=== PATIENT | female | born 1945 | race Caucasian/White ===

== ENCOUNTER 2021-12-20 16:38 | Observation (INO) ==
[2021-12-20 18:16] LABS: ABS Eosinophils 0.2 10^3/ul (0-0.6); ABS Monocytes 0.4 10^3/ul (0-0.8); ABS Neutrophils 5.1 10^3/ul (1.5-7.7); Eosinophil % 2.3 %; Hematocrit 34 % (35-47); Hemoglobin 11.7 g/dL (12.0-16.0); Lymphocyte % 14.5 %; Mean Corpuscular HGB Conc 34 g/dL (31-36); Mean Corpuscular Hemoglobin 30 pg (27-31); Mean Corpuscular Volume 89 fL (80-97); Mean Platelet Volume 6.8 fL (7.4-10.4); Platelet Count 247 10^3/uL (150-450); Red Blood Count 3.85 10^6 /uL (3.70-4.87); Red Cell Distribution Width 14 % (10-15); White Blood Count 6.6 10^3/uL (3.5-10.8)
[2021-12-20 19:27] LABS: Albumin 3.6 g/dL (3.2-5.2)
[2021-12-20 19:33] LABS: Albumin/Globulin Ratio 1.1 (1-3); C Reactive Protein 77.07 mg/L (<8.01); Globulin 3.3 g/dL (2-4); Total Protein 6.9 g/dL (6.4-8.9)
[2021-12-20 19:37] LABS: Calcium 9.1 mg/dL (8.6-10.3); Potassium 4.5 mmol/L (3.5-5.0); Total Bilirubin 0.3 mg/dL (0.2-1.0); eGFR CKD-EPI 94.1 (>60)
[2021-12-20] MEDS ORDERED: Iohexol 300 (CONTRAST) 10 ML SDV IV ONE (20:51)
[2021-12-20] MEDS ORDERED: Clindamycin 300 MG/D5W BAG 300 MG/50 ML BAG IV SCH (22:30)
[2021-12-20] MEDS: metroNIDAZOLE IV 500 MG/100ML 500 MG/100 ML BAG IVPB SCH (23:16)
[2021-12-20] MEDS ORDERED: Oral Rinse (Biotene)(NF) 237 ML or 473 ML ORAL RINSE BTL MT PRN (23:22)
[2021-12-20] MEDS: cefTRIAXone 1 gm/50 mL NS BAG 1 GM/50 ML BAG IVPB SCH (23:45)
[2021-12-21 01:43] LABS: Urine Appearance Cloudy; Urine Bilirubin Negative (Negative); Urine Blood 1+ (Negative); Urine Color Yellow; Urine Glucose Negative (Negative); Urine Ketones Negative (Negative); Urine Nitrite Positive (Negative); Urine Protein Negative (Negative); Urine Specific Gravity 1.014 (1.002-1.030); Urine Urobilinogen Negative (Negative)
[2021-12-21 01:47] LABS: Urine Bacteria 1+ (Absent); Urine Red Blood Cell Trace(0-2/hpf) (Absent); Urine White Blood Cell Trace(0-5/hpf) (Absent)
[2021-12-21] MEDS ORDERED: Polyethyl Glycol/Propylene Gly OPHTH.SOLN BOTH EYES PRN (05:05)
[2021-12-21] MEDS ORDERED: Senna TAB 8.6 mg TAB PO PRN (05:20)
[2021-12-21] MEDS: PTO: Pancrelipase 36,000 units (NF) PO SCH ×3 (05:25→17:19)
[2021-12-21 06:06] LABS: ABS Eosinophils 0.2 10^3/ul (0-0.6); ABS Lymphocytes 1.2 10^3/ul (1.0-4.8); ABS Monocytes 0.4 10^3/ul (0-0.8); ABS Neutrophils 4.7 10^3/ul (1.5-7.7); Eosinophil % 3.2 %; Hematocrit 33 % (35-47); Hemoglobin 11.4 g/dL (12.0-16.0); Lymphocyte % 18.5 %; Mean Corpuscular HGB Conc 34 g/dL (31-36); Mean Corpuscular Hemoglobin 31 pg (27-31); Mean Corpuscular Volume 89 fL (80-97); Mean Platelet Volume 6.5 fL (7.4-10.4); Platelet Count 252 10^3/uL (150-450); Red Blood Count 3.74 10^6 /uL (3.70-4.87); Red Cell Distribution Width 14 % (10-15); White Blood Count 6.6 10^3/uL (3.5-10.8)
[2021-12-21 06:20] LABS: INR 1.39 (0.86-1.15)
[2021-12-21 06:45] LABS: Calcium 9.1 mg/dL (8.6-10.3); Potassium 3.7 mmol/L (3.5-5.0)
[2021-12-21] MEDS: metroNIDAZOLE IV 500 MG/100ML 500 MG/100 ML BAG IVPB SCH ×2 (06:46→17:20)
[2021-12-21] MEDS: DULoxetine DR 60 mg CAP PO SCH (09:41)
[2021-12-21] MEDS: FERROUS SULFATE PO SCH (09:44)
[2021-12-21] MEDS: Potassium Chlor 20 meq TAB.ER PO SCH ×3 (09:44→20:44)
[2021-12-21] MEDS: Timolol 0.25% OPHTH.SOLN BTL BOTH EYES SCH ×2 (09:45→20:43)
[2021-12-21] MEDS: Polyethylene Glycol 3350 17 GM PACKET PO SCH (09:48)
[2021-12-21] MEDS: Chlorhexidine MOUTHWASH 0.12% 15 ML UDC SWISH SPIT SCH ×2 (19:35→23:56)
[2021-12-21] MEDS: cefTRIAXone 1 gm/50 mL NS BAG 1 GM/50 ML BAG IVPB SCH (20:39)
[2021-12-22] MEDS: metroNIDAZOLE IV 500 MG/100ML 500 MG/100 ML BAG IVPB SCH ×3 (00:32→15:42)
[2021-12-22] MEDS: Chlorhexidine MOUTHWASH 0.12% 15 ML UDC SWISH SPIT SCH ×3 (03:33→15:42)
[2021-12-22 05:45] LABS: ABS Eosinophils 0.3 10^3/ul (0-0.6); ABS Lymphocytes 1.3 10^3/ul (1.0-4.8); ABS Monocytes 0.5 10^3/ul (0-0.8); ABS Neutrophils 3.6 10^3/ul (1.5-7.7); Eosinophil % 5.8 %; Hematocrit 32 % (35-47); Hemoglobin 10.7 g/dL (12.0-16.0); Lymphocyte % 22.6 %; Mean Corpuscular HGB Conc 34 g/dL (31-36); Mean Corpuscular Hemoglobin 30 pg (27-31); Mean Corpuscular Volume 89 fL (80-97); Mean Platelet Volume 6.3 fL (7.4-10.4); Platelet Count 239 10^3/uL (150-450); Red Blood Count 3.58 10^6 /uL (3.70-4.87); Red Cell Distribution Width 14 % (10-15); White Blood Count 5.7 10^3/uL (3.5-10.8)
[2021-12-22] MEDS ORDERED: Vancomycin Random Level NOTE FOLLOW UP ONE (06:00)
[2021-12-22 06:25] LABS: Calcium 8.7 mg/dL (8.6-10.3); Potassium 4.1 mmol/L (3.5-5.0); eGFR CKD-EPI 92.7 (>60)
[2021-12-22] MEDS: Polyethylene Glycol 3350 17 GM PACKET PO SCH (07:53)
[2021-12-22] MEDS: DULoxetine DR 60 mg CAP PO SCH (07:54)
[2021-12-22] MEDS: Potassium Chlor 20 meq TAB.ER PO SCH ×2 (07:59→08:00)
[2021-12-22] MEDS: PTO: Pancrelipase 36,000 units (NF) PO SCH ×2 (08:02→15:42)
[2021-12-22] MEDS: FERROUS SULFATE PO SCH (08:03)
[2021-12-22] MEDS: Timolol 0.25% OPHTH.SOLN BTL BOTH EYES SCH (08:04)
[2021-12-22 15:36] VITALS: BP 108/64
== END 2021-12-22 18:43 | disposition home or self-care (01) ==
LOC: EDHOLD 16:38 → ED 16:38 → SUATTDRO 22:58 → SSU 12-21 04:44
PROVIDERS: ADMIT Student in an Organized Health Care Education/Training Program; ATTEND Internal Medicine

== ENCOUNTER 2022-05-16 20:45 | Inpatient (IN) ==
[2022-05-16] MEDS ORDERED: Lactated Ringers 1000 ml BAG 1,000 ML IV ONE (21:22)
[2022-05-16] MEDS ORDERED: Cefepime 1 GM in Dextrose 1 GM/50 ML BAG IV ONE (21:22)
[2022-05-16 21:46] LABS: Hematocrit 25 % (35-47); Hemoglobin 7.9 g/dL (12.0-16.0); Mean Corpuscular HGB Conc 32 g/dL (31-36); Mean Corpuscular Hemoglobin 24 pg (27-31); Mean Corpuscular Volume 73 fL (80-97); Platelet Count 155 10^3/uL (150-450); Red Blood Count 3.34 10^6 /uL (3.70-4.87); Red Cell Distribution Width 18 % (10-15); White Blood Count 10.7 10^3/uL (3.5-10.8)
[2022-05-16 22:03] LABS: ABS Lymphocytes 0.8 10^3/ul (1.0-4.8); ABS Monocytes 0.4 10^3/ul (0-0.8); ABS Neutrophils 9.4 10^3/ul (1.5-7.7); Eosinophil % 0.3 %; Lymphocyte % 7.7 %
[2022-05-16 22:04] LABS: Anisocytosis 1+; Microcytosis 2+
[2022-05-16 22:09] LABS: Albumin/Globulin Ratio 1.2 (1-3); C Reactive Protein 84.78 mg/L (<8.01); Calcium 7.8 mg/dL (8.6-10.3); Globulin 2.5 g/dL (2-4); Polychromasia 1+; Potassium 3.5 mmol/L (3.5-5.0); Total Bilirubin 0.5 mg/dL (0.2-1.0); Total Protein 5.5 g/dL (6.4-8.9); eGFR CKD-EPI 97.9 (>60)
[2022-05-16 22:21] LABS: Urine Appearance Turbid; Urine Color Yellow; Urine Ketones Negative (Negative); Urine Protein 2+ (100 mg/dL) (Negative); Urine Specific Gravity <=1.005 (1.005-1.030); Urine Urobilinogen 1.0 (Negative) (Negative); Urine pH 5.5 (5.0-9.0)
[2022-05-16 22:22] LABS: Urine Bilirubin Negative (Negative); Urine Glucose Trace (100mg/dL) (Negative); Urine Nitrite Positive (Negative)
[2022-05-16 22:42] LABS: Urine Bacteria 1+ (Absent); Urine Red Blood Cell 3+(>10/hpf) (Absent); Urine White Blood Cell 3+(>20/hpf) (Absent); Urine Yeast Present (Absent)
[2022-05-17] MEDS ORDERED: ZINC OXIDE TOPICAL PRN (00:58)
[2022-05-17] MEDS ORDERED: MENTHOL TOPICAL PRN (00:58)
[2022-05-17] MEDS ORDERED: Polyethylene Glycol 3350 17 GM PACKET PO PRN (00:58)
[2022-05-17] MEDS ORDERED: Furosemide 20 mg/2 ml IV VIAL IV SLOW PU ONE (01:06)
[2022-05-17 01:30] LABS: Magnesium 1.2 mg/dL (1.9-2.7)
[2022-05-17] MEDS ORDERED: Magnesium Sulf 4 GM/100 ML IV 4,000 MG/100 ML BAG IVPB ONE (05:51)
[2022-05-17 06:33] LABS: ABS Eosinophils 0.1 10^3/ul (0-0.6); ABS Lymphocytes 0.5 10^3/ul (1.0-4.8); ABS Monocytes 0.3 10^3/ul (0-0.8); ABS Neutrophils 9.3 10^3/ul (1.5-7.7); Eosinophil % 1.2 %; Hematocrit 22 % (35-47); Hemoglobin 7.1 g/dL (12.0-16.0); Lymphocyte % 4.7 %; Mean Corpuscular HGB Conc 32 g/dL (31-36); Mean Corpuscular Hemoglobin 24 pg (27-31); Mean Corpuscular Volume 74 fL (80-97); Mean Platelet Volume 7.3 fL (7.4-10.4); Nucleated Red Blood Cells % 0.1; Platelet Count 141 10^3/uL (150-450); Red Blood Count 2.95 10^6 /uL (3.70-4.87); Red Cell Distribution Width 18 % (10-15); White Blood Count 10.3 10^3/uL (3.5-10.8)
[2022-05-17] MEDS ORDERED: Dextran 70/Hypromellose Tears Eye Drops 15 ml BTL (for Artificials Tears) BOTH EYES PRN (07:22)
[2022-05-17 07:27] LABS: Blood Urea Nitrogen 4 mg/dL (6-24); CO2 Carbon Dioxide 27 mmol/L (22-32); Calcium 7.9 mg/dL (8.6-10.3); Chloride 93 mmol/L (101-111); Glucose 86 mg/dL (70-100); Magnesium 1.1 mg/dL (1.9-2.7); Sodium 128 mmol/L (135-145); eGFR CKD-EPI 99.3 (>60)
[2022-05-17 07:32] LABS: Anion Gap 8 mmol/L (2-11)
[2022-05-17] MEDS ORDERED: Cefepime ADVAN 1 GM in NS 0.9% 50 ML 50 ML IVPB SCH (09:00)
[2022-05-17] MEDS: DULoxetine DR 60 mg CAP PO SCH (09:05)
[2022-05-17] MEDS: Multivitamins/Minerals TAB PO SCH ×2 (09:05→09:12)
[2022-05-17] MEDS: PANCRELIPASE 36000 UNIT PO SCH (09:13)
[2022-05-17] MEDS: Cefepime 1 GM in Dextrose 1 GM/50 ML BAG IV SCH ×2 (10:57→21:00)
[2022-05-17] MEDS: Ondansetron 4 mg VIAL 2 MG/ML 2 ml VIAL IV PRN (11:11)
[2022-05-17 12:26] LABS: Ferritin 70.4 ng/mL (11-307)
[2022-05-17 12:34] LABS: Calcium 8.4 mg/dL (8.6-10.3); Potassium 3.4 mmol/L (3.5-5.0); eGFR CKD-EPI 97.4 (>60)
[2022-05-17] MEDS ORDERED: Potassium Chlor 20 meq TAB.ER PO ONE (12:38)
[2022-05-17] MEDS ORDERED: Potassium Chloride LIQUID 20 MEQ/15 ML LIQUID PO ONE (13:00)
[2022-05-17] MEDS ORDERED: Iohexol 350 (CONTRAST) 500 ML MDV IV ONE (13:11)
[2022-05-17] MEDS: Pancrelipase 5,000 units CAP PO SCH (18:39)
[2022-05-17 20:25] LABS: Osmolality Serum 261 mOsm/kg (275-295)
[2022-05-18] MEDS: PANCRELIPASE 36000 UNIT PO SCH (01:41)
[2022-05-18 05:37] LABS: ABS Eosinophils 0.2 10^3/ul (0-0.6); ABS Lymphocytes 0.9 10^3/ul (1.0-4.8); ABS Monocytes 0.7 10^3/ul (0-0.8); ABS Neutrophils 10.7 10^3/ul (1.5-7.7); Eosinophil % 1.7 %; Hematocrit 24 % (35-47); Hemoglobin 8.2 g/dL (12.0-16.0); Mean Corpuscular HGB Conc 34 g/dL (31-36); Mean Corpuscular Hemoglobin 25 pg (27-31); Mean Corpuscular Volume 74 fL (80-97); Mean Platelet Volume 7.2 fL (7.4-10.4); Platelet Count 168 10^3/uL (150-450); Red Blood Count 3.24 10^6 /uL (3.70-4.87); Red Cell Distribution Width 18 % (10-15); White Blood Count 12.5 10^3/uL (3.5-10.8)
[2022-05-18 05:50] LABS: Calcium 8.3 mg/dL (8.6-10.3); Magnesium 1.5 mg/dL (1.9-2.7); Potassium 4.1 mmol/L (3.5-5.0); eGFR CKD-EPI 95.3 (>60)
[2022-05-18] MEDS ORDERED: Magnesium Sulfate IV 3 GM in NS 0.9% 100 ml BAG 100 ML IVPB ONE (07:17)
[2022-05-18] MEDS ORDERED: Magnesium Sulfate 2 GM IV (Premix) IVPB ONE (08:00)
[2022-05-18] MEDS: Pancrelipase 5,000 units CAP PO SCH ×2 (08:13→17:10)
[2022-05-18] MEDS ORDERED: Furosemide 20 mg/2 ml IV VIAL IV SLOW PU ONE (08:21)
[2022-05-18] MEDS: Multivitamins/Minerals TAB PO SCH (08:58)
[2022-05-18] MEDS: DULoxetine DR 60 mg CAP PO SCH (08:58)
[2022-05-18] MEDS ORDERED: Magnesium Sulfate 1 GM IV 1 GM/100 ML BAG IV ONE (09:00)
[2022-05-18 09:57] LABS: Urine Osmo 349 mOsm/kg (150-1150)
[2022-05-18] MEDS: Cefepime 1 GM in Dextrose 1 GM/50 ML BAG IV SCH ×2 (10:00→21:42)
[2022-05-19 06:57] LABS: Calcium 8.5 mg/dL (8.6-10.3); Magnesium 1.8 mg/dL (1.9-2.7); eGFR CKD-EPI 93.4 (>60)
[2022-05-19] MEDS: DULoxetine DR 60 mg CAP PO SCH (09:00)
[2022-05-19] MEDS: Multivitamins/Minerals TAB PO SCH (09:02)
[2022-05-19] MEDS: Cefepime 1 GM in Dextrose 1 GM/50 ML BAG IV SCH ×2 (09:03→21:29)
[2022-05-19] MEDS: Pancrelipase 5,000 units CAP PO SCH ×2 (09:04→17:47)
[2022-05-19] MEDS: Senna TAB 8.6 mg TAB PO PRN ×2 (09:23→21:28)
[2022-05-19] MEDS: Ondansetron 4 mg VIAL 2 MG/ML 2 ml VIAL IV PRN (09:24)
[2022-05-19 09:44] LABS: Hematocrit 25 % (35-47); Hemoglobin 8.1 g/dL (12.0-16.0); Mean Corpuscular HGB Conc 32 g/dL (31-36); Mean Corpuscular Hemoglobin 24 pg (27-31); Mean Corpuscular Volume 74 fL (80-97); Mean Platelet Volume 7.3 fL (7.4-10.4); Platelet Count 194 10^3/uL (150-450); Red Blood Count 3.43 10^6 /uL (3.70-4.87); Red Cell Distribution Width 18 % (10-15); White Blood Count 11.9 10^3/uL (3.5-10.8)
[2022-05-19 09:56] LABS: Anisocytosis 2+; Hypochromasia 1+; Microcytosis 2+; Polychromasia 1+
[2022-05-19 11:19] LABS: ABS Eosinophils 0.2 10^3/ul (0-0.6); ABS Lymphocytes 1.2 10^3/ul (1.0-4.8); ABS Monocytes 0.9 10^3/ul (0-0.8); ABS Neutrophils 9.7 10^3/ul (1.5-7.7); Eosinophil % 1.4 %; Lymphocyte % 9.8 %
[2022-05-20 08:24] LABS: ABS Eosinophils 0.4 10^3/ul (0-0.6); ABS Lymphocytes 0.9 10^3/ul (1.0-4.8); ABS Monocytes 0.6 10^3/ul (0-0.8); ABS Neutrophils 5.8 10^3/ul (1.5-7.7); Eosinophil % 5.2 %; Hematocrit 23 % (35-47); Hemoglobin 7.7 g/dL (12.0-16.0); Lymphocyte % 12.2 %; Mean Corpuscular HGB Conc 33 g/dL (31-36); Mean Corpuscular Hemoglobin 25 pg (27-31); Mean Corpuscular Volume 75 fL (80-97); Mean Platelet Volume 7.2 fL (7.4-10.4); Platelet Count 180 10^3/uL (150-450); Red Blood Count 3.11 10^6 /uL (3.70-4.87); Red Cell Distribution Width 19 % (10-15); White Blood Count 7.7 10^3/uL (3.5-10.8)
[2022-05-20 08:39] LABS: Magnesium 1.6 mg/dL (1.9-2.7); Potassium 4.5 mmol/L (3.5-5.0); eGFR CKD-EPI 94.5 (>60)
[2022-05-20] MEDS ORDERED: Magnesium Sulfate 2 gm BAG 2 GM/50 ML BAG IVPB ONE (09:01)
[2022-05-20] MEDS: Pancrelipase 5,000 units CAP PO SCH ×2 (09:28→17:38)
[2022-05-20] MEDS: DULoxetine DR 60 mg CAP PO SCH (09:29)
[2022-05-20] MEDS: Multivitamins/Minerals TAB PO SCH (09:29)
[2022-05-20] MEDS: cefTRIAXone 2 gm/50 mL D5W 2 GM/50 ML BAG IV SCH (12:48)
[2022-05-21 05:58] LABS: ABS Eosinophils 0.4 10^3/ul (0-0.6); ABS Monocytes 0.6 10^3/ul (0-0.8); Eosinophil % 4.9 %; Hematocrit 22 % (35-47); Hemoglobin 7.6 g/dL (12.0-16.0); Lymphocyte % 12.9 %; Mean Corpuscular HGB Conc 34 g/dL (31-36); Mean Corpuscular Hemoglobin 25 pg (27-31); Mean Corpuscular Volume 74 fL (80-97); Mean Platelet Volume 7.2 fL (7.4-10.4); Nucleated Red Blood Cells % 0.1; Platelet Count 185 10^3/uL (150-450); Red Blood Count 3.01 10^6 /uL (3.70-4.87); Red Cell Distribution Width 19 % (10-15)
[2022-05-21 06:18] LABS: Calcium 8.2 mg/dL (8.6-10.3); Magnesium 1.9 mg/dL (1.9-2.7); Potassium 4.3 mmol/L (3.5-5.0); eGFR CKD-EPI 96.1 (>60)
[2022-05-21] MEDS: Pancrelipase 5,000 units CAP PO SCH ×2 (08:20→17:02)
[2022-05-21] MEDS: Multivitamins/Minerals TAB PO SCH (08:22)
[2022-05-21] MEDS: DULoxetine DR 60 mg CAP PO SCH (08:22)
[2022-05-21] MEDS: cefTRIAXone 2 gm/50 mL D5W 2 GM/50 ML BAG IV SCH (08:29)
[2022-05-21] MEDS ORDERED: Iron Sucrose 200 MG in NS 0.9% 100 ml BAG 100 ML IVPB ONE (20:00)
[2022-05-22 06:08] LABS: ABS Eosinophils 0.5 10^3/ul (0-0.6); ABS Lymphocytes 0.9 10^3/ul (1.0-4.8); ABS Monocytes 0.6 10^3/ul (0-0.8); ABS Neutrophils 6.2 10^3/ul (1.5-7.7); Eosinophil % 5.5 %; Hematocrit 23 % (35-47); Hemoglobin 7.8 g/dL (12.0-16.0); Lymphocyte % 10.8 %; Mean Corpuscular HGB Conc 34 g/dL (31-36); Mean Corpuscular Hemoglobin 25 pg (27-31); Mean Corpuscular Volume 75 fL (80-97); Mean Platelet Volume 7.4 fL (7.4-10.4); Nucleated Red Blood Cells % 0.1; Platelet Count 202 10^3/uL (150-450); Red Blood Count 3.11 10^6 /uL (3.70-4.87); Red Cell Distribution Width 19 % (10-15); White Blood Count 8.2 10^3/uL (3.5-10.8)
[2022-05-22 06:23] LABS: Calcium 8.5 mg/dL (8.6-10.3); Magnesium 1.7 mg/dL (1.9-2.7); Potassium 4.6 mmol/L (3.5-5.0); eGFR CKD-EPI 94.9 (>60)
[2022-05-22] MEDS: Pancrelipase 5,000 units CAP PO SCH (07:44)
[2022-05-22] MEDS: DULoxetine DR 60 mg CAP PO SCH (07:46)
[2022-05-22] MEDS: Multivitamins/Minerals TAB PO SCH (07:47)
[2022-05-22] MEDS: cefTRIAXone 2 gm/50 mL D5W 2 GM/50 ML BAG IV SCH (07:57)
[2022-05-22 12:49] VITALS: BP 120/62
[2022-05-22 12:55] LABS: C Reactive Protein 84.78 mg/L (<8.01)
[2022-05-22] MEDS ORDERED: Iron Sucrose 200 MG in NS 0.9% 100 ml BAG 100 ML IVPB ONE (14:00)
== END 2022-05-22 14:15 | disposition home or self-care (01) | DRG 193 ==
LOC: EDHOLD 20:45 → ED 20:45 → SSU 05-17 09:05 → SUATTDRO 05-18 11:00 → MEDTELE 05-19 12:50
PROVIDERS: ADMIT Internal Medicine; ATTEND Internal Medicine

== ENCOUNTER 2022-05-23 12:09 | Inpatient (IN) ==
[2022-05-23] MEDS ORDERED: oxyCODONE SR 10 mg TAB PO ONE (12:15)
[2022-05-23] MEDS ORDERED: Ondansetron ODT 4 mg TAB 4 MG TAB PO PRN (15:38)
[2022-05-23 16:02] LABS: ABS Eosinophils 0.4 10^3/ul (0-0.6); ABS Lymphocytes 0.9 10^3/ul (1.0-4.8); ABS Monocytes 0.5 10^3/ul (0-0.8); ABS Neutrophils 6.7 10^3/ul (1.5-7.7); Eosinophil % 4.6 %; Hematocrit 23 % (35-47); Hemoglobin 7.5 g/dL (12.0-16.0); Mean Corpuscular HGB Conc 33 g/dL (31-36); Mean Corpuscular Hemoglobin 25 pg (27-31); Mean Corpuscular Volume 76 fL (80-97); Platelet Count 213 10^3/uL (150-450); Red Blood Count 2.99 10^6 /uL (3.70-4.87); Red Cell Distribution Width 20 % (10-15); White Blood Count 8.6 10^3/uL (3.5-10.8)
[2022-05-23 16:17] LABS: Activated Partial Thrombo Time 39.7 seconds (26.0-38.0); INR 1.54 (0.89-1.11)
[2022-05-23 16:25] LABS: Albumin 2.9 g/dL (3.2-5.2); Calcium 8.4 mg/dL (8.6-10.3); Globulin 2.9 g/dL (2-4); Magnesium 1.6 mg/dL (1.9-2.7); Potassium 4.3 mmol/L (3.5-5.0); Total Bilirubin 0.3 mg/dL (0.2-1.0); Total Protein 5.8 g/dL (6.4-8.9); eGFR CKD-EPI 96.1 (>60)
[2022-05-23] MEDS ORDERED: Magnesium Sulfate 2 gm BAG 2 GM/50 ML BAG IVPB ONE (16:27)
[2022-05-23] MEDS ORDERED: Morphine 4 MG/ML VIAL (1 ml) IV ONE (16:58)
[2022-05-23] MEDS: Heparin 5000 UNITS/ML 1 mL VIAL SUBCUT SCH (21:20)
[2022-05-23] MEDS: Iron Sucrose 200 MG in NS 0.9% 100 ml BAG 100 ML IVPB SCH (21:29)
[2022-05-23] MEDS: PTO: Pancrelipase 36,000 units (NF) PO SCH (22:36)
[2022-05-24 05:14] LABS: ABS Eosinophils 0.4 10^3/ul (0-0.6); ABS Monocytes 0.4 10^3/ul (0-0.8); ABS Neutrophils 3.7 10^3/ul (1.5-7.7); Eosinophil % 7.8 %; Hematocrit 22 % (35-47); Hemoglobin 7.3 g/dL (12.0-16.0); Lymphocyte % 18.5 %; Mean Corpuscular HGB Conc 34 g/dL (31-36); Mean Corpuscular Hemoglobin 26 pg (27-31); Mean Corpuscular Volume 76 fL (80-97); Platelet Count 208 10^3/uL (150-450); Red Blood Count 2.84 10^6 /uL (3.70-4.87); Red Cell Distribution Width 20 % (10-15); White Blood Count 5.6 10^3/uL (3.5-10.8)
[2022-05-24] MEDS: Heparin 5000 UNITS/ML 1 mL VIAL SUBCUT SCH ×3 (05:44→21:36)
[2022-05-24 05:52] LABS: Calcium 8.1 mg/dL (8.6-10.3); Magnesium 1.9 mg/dL (1.9-2.7); Potassium 4.2 mmol/L (3.5-5.0); eGFR CKD-EPI 94.9 (>60)
[2022-05-24] MEDS: Iron Sucrose 200 MG in NS 0.9% 100 ml BAG 100 ML IVPB SCH (08:08)
[2022-05-24] MEDS: DULoxetine DR 60 mg CAP PO SCH (08:13)
[2022-05-24] MEDS: Polyethylene Glycol 3350 17 GM PACKET PO SCH (08:14)
[2022-05-24] MEDS: PTO: Pancrelipase 36,000 units (NF) PO SCH ×2 (09:30→18:14)
[2022-05-24] MEDS: Pantoprazole VIAL 40 MG VIAL IV SCH (14:01)
[2022-05-24 14:25] LABS: Hematocrit 26 % (35-47); Hemoglobin 8.7 g/dL (12.0-16.0)
[2022-05-25] MEDS: Heparin 5000 UNITS/ML 1 mL VIAL SUBCUT SCH ×3 (05:53→22:09)
[2022-05-25 06:13] LABS: ABS Eosinophils 0.3 10^3/ul (0-0.6); ABS Monocytes 0.4 10^3/ul (0-0.8); ABS Neutrophils 4.1 10^3/ul (1.5-7.7); Eosinophil % 5.8 %; Hematocrit 25 % (35-47); Hemoglobin 8.8 g/dL (12.0-16.0); Lymphocyte % 17.4 %; Mean Corpuscular HGB Conc 35 g/dL (31-36); Mean Corpuscular Hemoglobin 27 pg (27-31); Mean Corpuscular Volume 78 fL (80-97); Mean Platelet Volume 7.4 fL (7.4-10.4); Nucleated Red Blood Cells % 0.1; Platelet Count 209 10^3/uL (150-450); Red Blood Count 3.26 10^6 /uL (3.70-4.87); Red Cell Distribution Width 21 % (10-15); White Blood Count 5.9 10^3/uL (3.5-10.8)
[2022-05-25 06:44] LABS: Calcium 8.4 mg/dL (8.6-10.3); Magnesium 1.6 mg/dL (1.9-2.7); Potassium 4.3 mmol/L (3.5-5.0); eGFR CKD-EPI 93.8 (>60)
[2022-05-25] MEDS ORDERED: Magnesium Sulfate 2 gm BAG 2 GM/50 ML BAG IVPB ONE (08:10)
[2022-05-25] MEDS: Iron Sucrose 200 MG in NS 0.9% 100 ml BAG 100 ML IVPB SCH (08:47)
[2022-05-25] MEDS: Polyethylene Glycol 3350 17 GM PACKET PO SCH (08:51)
[2022-05-25] MEDS: PTO: Pancrelipase 36,000 units (NF) PO SCH ×2 (08:51→17:35)
[2022-05-25] MEDS: Pantoprazole VIAL 40 MG VIAL IV SCH (08:51)
[2022-05-25] MEDS: DULoxetine DR 60 mg CAP PO SCH (08:52)
[2022-05-25 16:37] LABS: Urine Appearance Clear; Urine Bilirubin Negative (Negative); Urine Blood Trace (Intact) (Negative); Urine Color Straw; Urine Glucose Negative (Negative); Urine Ketones Negative (Negative); Urine Nitrite Negative (Negative); Urine Protein Negative (Negative); Urine Specific Gravity 1.015 (1.005-1.030); Urine Urobilinogen 0.2 (Negative) (Negative); Urine pH 7.5 (5.0-9.0)
[2022-05-25 16:52] LABS: Urine Bacteria 1+ (Absent); Urine Red Blood Cell 1+(3-5/hpf) (Absent); Urine White Blood Cell 2+(11-20/hpf) (Absent); Urine Yeast Present (Absent)
[2022-05-26] MEDS: PTO: Pancrelipase 36,000 units (NF) PO SCH (07:30)
[2022-05-26] MEDS: Polyethylene Glycol 3350 17 GM PACKET PO SCH (07:31)
[2022-05-26] MEDS: DULoxetine DR 60 mg CAP PO SCH ×2 (07:31→08:03)
[2022-05-26 07:39] LABS: ABS Eosinophils 0.2 10^3/ul (0-0.6); ABS Monocytes 0.5 10^3/ul (0-0.8); ABS Neutrophils 4.7 10^3/ul (1.5-7.7); Eosinophil % 3.4 %; Hematocrit 29 % (35-47); Hemoglobin 9.8 g/dL (12.0-16.0); Lymphocyte % 15.9 %; Mean Corpuscular HGB Conc 34 g/dL (31-36); Mean Corpuscular Hemoglobin 27 pg (27-31); Mean Corpuscular Volume 78 fL (80-97); Mean Platelet Volume 6.9 fL (7.4-10.4); Platelet Count 237 10^3/uL (150-450); Red Blood Count 3.65 10^6 /uL (3.70-4.87); Red Cell Distribution Width 22 % (10-15); White Blood Count 6.4 10^3/uL (3.5-10.8)
[2022-05-26] MEDS: Pantoprazole VIAL 40 MG VIAL IV SCH (08:06)
[2022-05-26 08:23] LABS: Calcium 8.9 mg/dL (8.6-10.3); Magnesium 1.8 mg/dL (1.9-2.7); Potassium 4.8 mmol/L (3.5-5.0); eGFR CKD-EPI 90.7 (>60)
[2022-05-26] MEDS ORDERED: Magnesium Sulfate 2 gm BAG 2 GM/50 ML BAG IVPB ONE (09:55)
[2022-05-26] MEDS ORDERED: Benzocaine/Menthol LOZ PO PRN (09:57)
[2022-05-26] MEDS ORDERED: BIOTENE PO PRN (09:59)
[2022-05-26 11:16] VITALS: BP 115/68
[2022-05-26] MEDS ORDERED: Morphine 2 MG/ML SYRINGE ONE (11:17)
[2022-05-26] MEDS: Morphine 2 MG/ML SYRINGE IV PRN ×2 (11:21→13:55)
[2022-05-26 12:57] LABS: Activated Partial Thrombo Time 46.9 seconds (26.0-38.0); INR 1.07 (0.89-1.11)
[2022-05-26] MEDS ORDERED: ceFAZolin 2 GM in NS PREMIX 2 GM/100 ML BAG IVPB ONE (14:42)
[2022-05-26] MEDS ORDERED: fentaNYL 250 mcg/5 ml 50 MCG/ML 5 ml VIAL (250 MCG) ONE (15:33)
[2022-05-26] MEDS ORDERED: Lidocaine 2% PF 5 ML VIAL ONE (15:33)
[2022-05-26] MEDS ORDERED: Propofol 10 MG/ML 20 ML BTL ONE (15:33)
[2022-05-26] MEDS ORDERED: Rocuronium 50 mg VIAL 10 mg/ml 5 ml VIAL (50 mg) ONE (15:33)
[2022-05-26] MEDS ORDERED: Midazolam 2 mg/2 ml VIAL 1 mg/ml 2 ml VIAL (2 mg) ONE (15:33)
[2022-05-26] MEDS ORDERED: Phenylephrine 40 mcg/mL 10mL (400mcg) SYRINGE ONE (16:28)
[2022-05-26] MEDS ORDERED: Ondansetron 4 mg VIAL 2 MG/ML 2 ml VIAL ONE (16:30)
[2022-05-26] MEDS ORDERED: Glycopyrrolate IV 0.2 MG/ML 1 ML VIAL ONE (17:27)
[2022-05-26] MEDS ORDERED: Norepinephrine IV 1 MG/ML 4 ML VIAL ONE (17:37)
[2022-05-26] MEDS ORDERED: Norepinephrine 16MCG/ML BAG NS 4,000 MCG/250 ML BAG IV ONE (17:38)
[2022-05-26] MEDS ORDERED: Sodium Bicarbonate 8.4% VIAL 1 MEQ/ML 50 ml VIAL (50 meq) ONE (17:39)
[2022-05-26] MEDS ORDERED: Sodium Bicarbonate 8.4% SYR 50 ml SYRINGE ONE ×3 (17:42→17:48)
[2022-05-26] MEDS ORDERED: EPINEPHrine SYR 0.1MG/ML 10 ml SYRINGE ONE (17:48)
[2022-05-26] MEDS ORDERED: Calcium CHLORIDE 10% SYRINGE 1 GM/10 ML ONE ×2 (17:50)
== END 2022-05-26 18:30 | disposition expired | DRG 480 ==
LOC: ED 12:09 → EDHOLD 14:17 → SSU 18:51 → ICU 05-26 17:43
PROVIDERS: ADMIT Internal Medicine; ATTEND Internal Medicine